=== PATIENT | female | born 2000 | race Caucasian/White ===

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

== ENCOUNTER 2023-05-23 19:36 | Emergency (ER) | payer OTHER, SELFPAY ==
[2023-05-23 19:37] VITALS: BP 146/95; PULSE 86; RESP 16; TEMP 36.3; O2SAT 100; BMI 24.9
--- NOTE | 2023-05-23 19:53 | CT_ITS ---
INDICATION: Tingling left hand EXAMINATION: CT BRAIN - CT Head or Brain W/O Contrast Injection TECHNIQUE: Multiple axial images were obtained of the head without intravenous contrast. A radiation dose optimization technique was used for this scan. IV Contrast dosage and agent: None. RADIATION DOSAGE (If Supplied By Facility): CTDIvol = ( 44.99 ) mGy, DLP = ( 846.73 ) mGycm COMPARISON: No relevant prior examinations for comparison FINDINGS: HEMISPHERES: 1. The cerebral parenchyma, ventricular system, subarachnoid spaces have normal configuration and density. There is a normal gyral pattern. There is normal maharaj/white differentiation. No midline shift.. 2. The hemispheric white matter has normal appearance. 3. No intraparenchymal mass, hemorrhage, or acute territorial infarct. CEREBELLUM - BRAINSTEM: The cerebellum, brainstem, basilar and suprasellar cisterns have normal appearance. No Chiari malformation. PITUITARY: Infundibulum and pituitary have normal configuration. Midline structures appear normal. CSF SPACES: Appropriate for age. No hydrocephalus. Basal cisterns are patent. VESSELS: 1. No significant vascular calcifications in the cavernous carotid vessels. 2. No hyperdense vascular signs noted.. ORBITS AND PARANASAL SINUSES: 1. Normal appearance of the bony orbits. Normal appearance of the globes and retrobulbar soft tissues.. 2. Paranasal sinuses are clear. BONY ELEMENTS: Bony elements of the cranial vault, facial skeleton and skull base have normal appearance. SCALP AND SOFT TISSUES: Normal appearance of the soft tissues of the scalp and the visualized face OTHER: None ASPECTS Score for Acute Strokes: 10 CT/Brain/Head without Contrast IMPRESSION: 1. Normal CT examination of the brain 2. No intracranial mass, hemorrhage or acute territorial infarct. 3. No radiographically significant sinus disease.. Electronically Signed: Sandeep Romano MD at 20:35 EDT ,
--- NOTE | 2023-05-23 19:55 | EX.ED.DYSGE1 ---
HPI History of Present Illness Chief Complaint: General Illness Informant: patient Narrative Narrative: Patient presents with concern for reaction to medication. She just started Xywav on Monday. She is states that each time she takes a dose she gets a little tingling in her hands. It still comes and goes during the day. She states all the fingertips just at the very tip tingle. She occasionally gets tingling in 1 small area on the volar lateral forearm. 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 But she thinks it is because it was tingling but not weak. She has no headache or neck pain. She has not had this before. She also states she gets occasional pain or cramps in the muscles of her arm or left chest area. No shortness of breath. She states the arm does hurt when she lifts things but does not remember lifting anything heavy or doing anything different recently. She also states the medicine seems to be causing more insomnia and is supposed to help her sleep. She just seems out of it are just not quite right on the medicine. She still takes Concerta during the day. [facility] Medical History Generalized anxiety disorder Major depressive disorder, recurrent severe without psychotic features Migraines Narcolepsy without cataplexy Home Medications lisdexamfetamine 30 mg capsule 30 mg PO DAILY 11/29/19 [History Last Taken Unknown] sertraline 100 mg tablet 100 mg PO DAILY 11/29/19 [History Last Taken Unknown] Allergy/AdvReac Type Severity Reaction Status Date / Time No Known Allergies Allergy Verified 05/23/23 19:37 Social History Smoking Status: Never smoker ROS ROS ED Constitutional Constitutional ED: Denies chills or fever(s) Eyes Eyes: Denies change in vision ENT ENT ED: Denies rhinorrhea or sore throat Cardiovascular Cardiovascular: Reports other Details: He gets some muscle cramps but is not having continued chest pain. No palpitations. ; Denies chest pain or palpitations Respiratory/Chest Respiratory/Chest: Denies cough or dyspnea Musculoskeletal Musculoskeletal: Reports myalgias Integumentary Denies Abrasions or rash Neurologic Neurologic: Reports paresthesias; Denies weakness Hematologic/Lymphatic Hematologic/Lymphatic: Denies lymphadenopathy Allergic/Immunologic Allergic/Immunologic ED: Denies urticaria EXAM Physical Exam Narrative Exam Narrative: Patient awake alert no acute distress. She is sitting very comfortably in the bed nontoxic. Pleasant carries on normal conversation. HEENT shows no sign of trauma. Mucous membranes are moist. No rashes. Neck is supple. No pain with motion. Even with axial loading I do not reproduce her symptoms. Lungs are clear bilaterally and saturations are normal at 100% on room air showing no hypoxia. Heart is regular. I hear no murmur or irregularity of beats or premature beats. Pulses are normal including all the way out to the wrist. Abdomen soft nontender Extremity shows no swelling or differential color or temperature. Capillary refill is normal. No distended veins. No pallor. No rashes. Neurologic: Patient is able to lift her arm up move her hand well. 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 There is no indication of weakness. Her sensation is intact to touch but she states is just tingly at the fingertips. Tapping on the ulnar nerve at the elbow does reproduce some of the symptoms but all her fingers are involved not just small and ring. No real Tinel's at the wrist. Const Vital Signs: 05/23/23 19:37 05/23/23 20:45 Temperature 97.3 F L Temperature Source Temporal Pulse Rate 86 Respiratory Rate 16 Respiratory Effort Normal Non-Labored Respiratory Pattern Normal Blood Pressure 146/95 H Blood Pressure Mean 112 Pulse Ox 100 MDM MDM MDM Narrative Medical decision making narrative: Per interpretation the patient's CT scan of the head without contrast shows no mass bleed or other acute abnormality. Final reading is normal CT examination of the brain. Patient has some subjective paresthesias of the fingertips. Her sensation and strength is still intact. There is no sign of vascular insufficiency or poor capillary refill. This all started and seems to peak after taking a new medicine. I encouraged her to stop this medicine and she should follow-up with her primary physician. Certainly if she develops weakness or other symptomatology I would encourage her to return. At this time I do not think electrolytes are needed as she has isolated symptoms just in her fingertips of a single hand with no other symptoms. Radiography Diagnostic Testing: Clinical Impression(s) from Imaging Studies Brain CT 05/23/23 19:53 IMPRESSION: 1. Normal CT examination of the brain 2. No intracranial mass, hemorrhage or acute territorial infarct. 3. No radiographically significant sinus disease.. Electronically Signed: Sandeep Romano MD at 20:35 EDT , Discharge Plan Triage Chief Complaint: General Illness ED Provider: Yuan Alicea Dx/Rx/DC Orders Clinical Impression: Paresthesia, Medication reaction Instructions: ED Paraesthesias Prescriptions: No Action sertraline 100 MG tablet 100 mg PO DAILY lisdexamfetamine 30 MG capsule 30 mg PO DAILY Patient Comments: TAKE ONE CAPSULE BY MOUTH ONCE DAILY Primary Care Provider: Care Physician,Rachana Primary Referrals: NOT,DEFINED [Non-Staff] - Activity Restrictions/Additional Instructions: Follow-up with your prescribing physician or primary physician as soon as possible. I would hold your new medicine until you see your physician for recheck. Disposition Disposition: Home, Self Care
== END 2023-05-23 21:34 | disposition home or self-care (01) ==
PROVIDERS: Emergency Provider Emergency Medicine; Visit Provider Emergency Medicine
DX: T50.995A Adverse effect of other drugs, medicaments and biological substances, initial encounter (principal); R20.2 Paresthesia of skin
CPT/HCPCS: 70450; 99282

== ENCOUNTER 2023-07-05 15:14 | Emergency (ER) | payer OTHER, SELFPAY ==
[2023-07-05 15:15] VITALS: BP 131/78; PULSE 100; RESP 18; TEMP 36.8; O2SAT 99; BMI 23.7
--- NOTE | 2023-07-05 15:31 | EKG12_ITS ---
Test Reason : CP/SOB Blood Pressure : / mmHG Vent. Rate : 094 BPM Atrial Rate : 094 BPM P-R Int : 124 ms QRS Dur : 082 ms QT Int : 370 ms P-R-T Axes : 065 050 048 degrees QTc Int : 462 ms Normal sinus rhythm Normal ECG Confirmed by RACHEL WELDON ([id number]), managing editor LAURA SPEARS ([id number]) on 07/20/2023 10:15:06 AM Referred By: KAVITA Confirmed By:RACHEL WELDON
--- NOTE | 2023-07-05 15:32 | EX.ED.DYSGE1 ---
HPI History of Present Illness Chief Complaint: Shortness of Breath Detail of Chief Complaint: Chest pain, shortness of breath, dizziness Informant: patient Narrative Narrative: Patient presents to the emergency department with multiple complaints. Patient states that she has been short of breath for about 2 days and she has been under increased stress and thought maybe was anxiety but typically her anxiety does not present this way. Patient also complaining of some nondescript chest discomfort. Patient states that she has been feeling lightheaded at times and certain head movements give her a little bit of a spinning sensation although she is never had vertigo before. Patient does have history of narcolepsy and is on a medication that can cause some dizziness and she attributed the dizziness to that. Patient also developed a cough today. Cough nonproductive. She has not had a fever. Patient has an IUD and does not think she is [facility] Medical History Generalized anxiety disorder Major depressive disorder, recurrent severe without psychotic features Migraines Narcolepsy without cataplexy Home Medications lisdexamfetamine 30 mg capsule 30 mg PO DAILY 11/29/19 [History Last Taken Unknown] sertraline 100 mg tablet 100 mg PO DAILY 11/29/19 [History Last Taken Unknown] Allergy/AdvReac Type Severity Reaction Status Date / Time No Known Allergies Allergy Verified 07/05/23 15:15 Social History Smoking Status: Never smoker ROS ROS ED Constitutional Constitutional ED: Reports systems reviewed and no addt'l complaints, except as documented; Denies body ache(s), change in weight or chills Eyes Eyes: Denies acute decrease in peripheral vision, change in vision, double vision or loss of vision ENT ENT ED: Reports none; Denies ear pain, lip swelling, loss taste/smell, neck pain, otalgia or sore throat Cardiovascular Cardiovascular: Reports none and chest pain; Denies abdominal pain, chest pain with activity, leg edema, lightheadedness, palpitations, rapid heart rate or syncope Respiratory/Chest Respiratory/Chest: Reports none, dry cough and dyspnea; Denies change in mental status, hemoptysis, shortness of breath at rest or shortness of breath with exertion Gastrointestinal Gastrointestinal: Reports none; Denies abdominal pain, change in stool character, diarrhea, hematemesis, hematochezia, melena, rectal bleeding or vomiting Genitourinary Genitourinary ED: Reports none; Denies abdominal discomfort, anuria, dysuria, genital pain or polyuria Musculoskeletal Musculoskeletal: Reports none; Denies arthralgias, back pain, difficulty walking, extremity pain, muscle weakness or myalgias Integumentary Reports none; Denies abscess or rash Neurologic Neurologic: Reports none; Denies abnormal gait, confusion, focal weakness, frequent falls, headache(s), loss of vision, numbness, paresthesias, radicular pain, vertigo or weakness Psychiatric Psychiatric: Reports systems reviewed and no addt'l complaints, except as documented and none; Denies behavioral changes, confusion, difficulty concentrating, hallucinations, suicidal ideation, tactile hallucinations or visual hallucinations Endocrine Endocrinology: Denies none, cold intolerance, excessive sweating, fatigue or heat intolerance Hematologic/Lymphatic Hematologic/Lymphatic: Reports none; Denies anemia, easy bleeding or easy bruising Allergic/Immunologic Allergic/Immunologic ED: Denies as per HPI, none, lip swelling, mouth swelling, throat swelling, tongue swelling or hives EXAM Physical Exam Const Vital Signs: 07/05/23 15:15 07/05/23 15:21 07/05/23 15:21 Temperature 98.2 F Temperature Source Temporal Pulse Rate 100 Pulse Rate [Lying] Pulse Rate [Sitting (for 1 minute prior to obtaining)] Pulse Rate [Standing (for 1 minute prior to obtaining)] Respiratory Rate 18 Respiratory Effort Normal Respiratory Depth Respiratory Pattern Normal Blood Pressure 131/78 H Blood Pressure [Lying] Blood Pressure [Sitting (for 1 minute prior to obtaining)] Blood Pressure Mean 95 Blood Pressure Mean [Lying] Blood Pressure Mean [Sitting (for 1 minute prior to obtaining)] Pulse Ox 99 Oxygen Delivery Method Room Air 07/05/23 15:24 07/05/23 16:49 07/05/23 16:54 Temperature Temperature Source Pulse Rate 99 Pulse Rate [Lying] 95 Pulse Rate [Sitting (for 1 minute prior to obtaining)] 78 Pulse Rate [Standing (for 1 minute prior to obtaining)] 110 H Respiratory Rate 19 H Respiratory Effort Normal Respiratory Depth Normal Respiratory Pattern Normal Blood Pressure 108/93 H Blood Pressure [Lying] 115/68 Blood Pressure [Sitting (for 1 minute prior to obtaining)] 114/82 H Blood Pressure Mean 98 Blood Pressure Mean [Lying] 83 Blood Pressure Mean [Sitting (for 1 minute prior to obtaining)] 92 Pulse Ox 99 Oxygen Delivery Method Room Air Room Air 07/05/23 17:45 Temperature Temperature Source Pulse Rate 86 Pulse Rate [Lying] Pulse Rate [Sitting (for 1 minute prior to obtaining)] Pulse Rate [Standing (for 1 minute prior to obtaining)] Respiratory Rate 16 Respiratory Effort Respiratory Depth Respiratory Pattern Blood Pressure 115/74 Blood Pressure [Lying] Blood Pressure [Sitting (for 1 minute prior to obtaining)] Blood Pressure Mean 87 Blood Pressure Mean [Lying] Blood Pressure Mean [Sitting (for 1 minute prior to obtaining)] Pulse Ox 99 Oxygen Delivery Method Nasal Cannula Positive well nourished and well developed General Appearance ED: well developed and NAD HEENT Reports TM's clear and moist mucous membranes normocephalic and atraumatic; Negative for trauma or tenderness Tympanic Membrane ED: Yes TM's clear Eyes PERRL and EOMs intact bilaterally General Eye ED: Negative for pale conjunctiva or scleral icterus Neck no lymphadenopathy, supple and no JVD General: Negative for tenderness Chest Wall inspection of chest normal and palpation of chest normal Chest: Negative for tenderness Resp normal respiratory effort and clear to auscultation bilaterally Effort and Inspection: Negative for respiratory distress or pain with movement Auscultation: Negative for rhonchi, wheezes or diminished lung sounds Cardio regular rate, regular rhythm, S1 normal heart sound, S2 normal heart sound and no murmurs Peripheral Pulses: pulses 2+ throughout GI normal to inspection, nondistended, normoactive bowel sounds, soft to palpation, non-tender, non-distended and no masses Back/Spine no CVA tenderness and no thoracic nor lumbar tenderness Extremity normal to inspection General Extremety ED: Negative for edema General Extremity: Negative for edema Neuro oriented x3, CN's II-XII intact bilaterally, no sensory deficits noted and gait normal Neuro Narrative: Finger-nose and heel vines testing within normal limits. Hallpike maneuver performed was negative for nystagmus but she did complain of dizziness. Sensorium / Orientation: awake, alert, oriented to person, oriented to place and oriented to time Motor Exam: strength 5/5 throughout and strength abnormal Psych mental status grossly normal Skin no rashes or lesions noted and no wounds MDM MDM MDM Narrative Medical decision making narrative: Patient presents with multiple vague complaints of dizziness and chest pain and shortness of breath. She does have history of anxiety but not on anxiety medications. Patient had significant work-up here. EKG obtained arrival showed a sinus rhythm with rate of 94 bpm with no acute ST segment changes. No evidence of pericarditis. CBC with differential is normal. Troponin was normal at less than 3 and D-dimer was normal. hCG was negative. Chemistries unremarkable. 1 view chest x-ray obtained was normal. This point etiology of symptomatology is unclear however suspect may be anxiety related. Patient does not want anything for anxiety for home. Lab Data Labs: Laboratory Results - last 24 hr 07/05/23 07/05/23 15:47 16:33 WBC 7.2 RBC 4.40 Hgb 12.5 Hct 39.7 MCV 90.2 MCH 28.4 MCHC 31.5 L RDW Std Deviation 42.3 RDW Coeff of Cici 12.8 Plt Count 302 MPV 9.2 Immature Gran % (Auto) 0.300 Neut % (Auto) 61.9 Lymph % (Auto) 26.1 Bacon % (Auto) 9.2 Eos % (Auto) 1.4 Baso % (Auto) 1.1 H Absolute Neuts (auto) 4.5 Absolute Lymphs (auto) 1.88 Nucleated RBC % 0 D-Dimer Quant (PE/DVT) 0.39 Sodium 138 Potassium 3.7 Chloride 107 Carbon Dioxide 21.0 Anion Gap 10 BUN 10 Creatinine 0.79 Estim Creat Clear Calc 129.99 Est GFR (MDRD) Af Amer 117 Est GFR (MDRD) Non-Af 97 BUN/Creatinine Ratio 12.6 Glucose 76 Calcium 9.2 Troponin I High Sens < 3 L Serum , Qual NEGATIVE Radiography Diagnostic Testing: Clinical Impression(s) from Imaging Studies Chest X-Ray 07/05/23 15:45 IMPRESSION: No radiographic evidence of acute cardiopulmonary disease. Electronically Signed: Jennifer Man MD at 16:28 EDT Reading Location ID and State: [facility] / [place] , Service support , 1 view chest x-ray obtained interpreted by myself as no acute disease process. No evidence of infiltrate or pneumothorax. EKG Initial EKG: Attestation: I personally reviewed and interpreted this EKG as follows: Comments: Sinus rhythm with a 94 bpm with no acute ST segment changes. Discharge Plan Triage Chief Complaint: Shortness of Breath Other Complaint: Chest Pain Dizziness ED Provider: Radha Macdonald Dx/Rx/DC Orders Clinical Impression: Dizziness, Dyspnea, Chest pain Instructions: ED Anxiety Reaction, ED Chest Pain, Uncertain Cause, ED Dizziness, Uncertain Cause Prescriptions: No Action sertraline 100 MG tablet 100 mg PO DAILY lisdexamfetamine 30 MG capsule 30 mg PO DAILY Patient Comments: TAKE ONE CAPSULE BY MOUTH ONCE DAILY Primary Care Provider: Care Physician,No Primary Referrals: Amy Cortes MD [Med Staff - Active Staff] - 5-7 Days Care Physician,No Primary [Primary Care Provider] - Disposition Disposition: Home, Self Care Discharge Date/Time: 07/05/23 17:48
--- NOTE | 2023-07-05 15:34 | NURSING ---
NO OLD EKGS
--- NOTE | 2023-07-05 15:45 | RAD_ITS ---
STUDY: X-RAY CHEST REASON FOR EXAM: Female, 22 years old patient with dyspnea. TECHNIQUE: Single AP portable view of the chest. COMPARISON: Prior comparison studies are not available for review at this time. FINDINGS: Cardiac monitoring leads are present. The lungs are clear and expanded. There is no demonstrated pleural abnormality. Normal size heart. Normal mediastinum and seferino. Normal visualized pulmonary arteries. Normal visualized aortic arch and descending thoracic aorta. Normal visualized thoracic spine. Normal visualized ribs, clavicles, and shoulders. There is no demonstrated abnormality of the visualized soft tissue structures of the upper abdomen. RAD/Chest 1 View (Portable) IMPRESSION: No radiographic evidence of acute cardiopulmonary disease. Electronically Signed: Jennifer Man MD at 16:28 EDT ,
[2023-07-05 15:54] LABS: Absolute Lymphocyte Count 1.88 X10^3/uL (0.83-4.51); Absolute Neutrophil Count 4.5 X10^3/uL (2.0-7.7); Basophil# 0.08 X10^3/uL; Basophil% 1.1 % (0-1); Eosinophils% 1.4 % (0-5); Hematocrit 39.7 % (37-47); Hemoglobin 12.5 g/dL (12.0-15.0); Lymphocyte # 1.88 X10^3/ul (0.83-4.51); Lymphocyte % 26.1 % (19-41); Mean Corp Hgb Conc 31.5 g/dL (32-36); Mean Corpuscular Hgb 28.4 pg (27.0-32.0); Mean Corpuscular Volume 90.2 fL (81-99); Mean Platelet Vol. 9.2 fl (6.2-12.0); Monocyte# 0.66 X10^3/uL; Monocyte% 9.2 % (0-10); NRBC Flagged by Analyzer 0 % (0-5); Neutrophil # 4.47 X10^3/uL (2.7-7.7); Neutrophil % 61.9 % (47-70); Platelet Count 302 K/mm3 (150-450); RBC Distribution Width CV 12.8 % (11.6-14.6); RBC Distribution Width SD 42.3 fl (35.1-43.9); White Blood Count 7.2 K/mm3 (4.4-11.0)
[2023-07-05 16:12] LABS: Anion Gap 10 (5-15); BUN 10 mg/dL (7-18); BUN/Creat Ratio 12.6 RATIO (10-20); Calcium,Total 9.2 mg/dL (8.5-10.1); Chloride 107 mmol/L (98-107); Creatinine, Serum 0.79 mg/dL (0.55-1.02); EST Glomerular Filtration Rate 97 mL/min (>60); Est Glom Filt Rate - Afr Amer 117 mL/min (>60); Estimated Creatinine Clearance 129.99 ml/min; Glucose 76 mg/dL (74-106); Potassium 3.7 mmol/L (3.5-5.1); Sodium Level 138 mmol/L (136-145); Troponin-I HS < 3 pg/mL (3.0-54.0)
[2023-07-05 16:23] LABS: D-Dimer Quantitative (DVT/PE) 0.39 FEU/ug/m (0.27-0.49)
[2023-07-05 16:49] VITALS: BP 114/82; BP 115/68; PULSE 110; PULSE 78; PULSE 95
[2023-07-05 16:54] VITALS: BP 108/93; PULSE 99; RESP 19; O2SAT 99
[2023-07-05 17:36] LABS: Internal QC Validated? YES +Cl - CLEAR BKGD; Pregnancy, Serum, hCG Quali. NEGATIVE Negative
[2023-07-05 17:45] VITALS: BP 115/74; PULSE 86; RESP 16; O2SAT 99
== END 2023-07-05 17:48 | disposition home or self-care (01) ==
PROVIDERS: Emergency Provider Emergency Medicine; Visit Provider Emergency Medicine
DX: R42 Dizziness and giddiness (principal); R06.00 Dyspnea, unspecified; R07.9 Chest pain, unspecified
CPT/HCPCS: 71045; 80048; 84484; 84703; 85025; 85379; 87428; 93005; 99285; A4216